=== PATIENT | male | born 1950 | race Caucasian/White ===

== ENCOUNTER 2020-07-03 06:28 | Day surgery (SDC) | payer OTHER, SELFPAY ==
[2020-06-28 19:40] VITALS: BMI 37.0
--- NOTE | 2020-06-30 08:32 | MHC.SHP ---
Pre-Procedural Eval Section A The patient is an INPATIENT: No The History & Physical has been completed within 30 days and I have reviewed it.: Yes Section B Chief Complaint: Cataract Left Eye,Ocular Hypertension Allergies: Allergies Allergy/AdvReac Type Severity Reaction Status Date / Time No Known Allergies Allergy Unverified 06/30/20 08:28 Plan Diagnosis/Plan: Unchanged Patient has been examined and remains a candidate for the planned procedure
--- NOTE | 2020-06-30 11:46 | HO.ANESPROP2 ---
Documented by User: Tierra Little 06/30/20 15:06 HPI - Anesthesia Eval Consult details Narrative: 69yo M for L cataract , trabeculectomy PCP cleared prednisone daily for rheum PMFSH Past Medical History Medical History Diabetes Edema History of gastric ulcer Hypertension Immunocompromised Pleural effusion Surgical History Surgical History H/O endoscopy Social History Social History Smoking Status: Never smoker Second Hand Smoke Exposure: No Use of substances other than those prescribed or required for medical reasons: No Advance Directives: Yes (unknown) Advance Directives on File: Yes Advance Directives Date on File: 07/03/20 Meds Allergies Allergy/AdvReac Type Severity Reaction Status Date / Time No Known Allergies Allergy Unverified 06/30/20 08:28 Home Medications Medication Instructions Recorded Confirmed Type azathioprine 3 tab PO DAILY 06/28/20 06/28/20 History diltiazem HCl 1 cap PO DAILY 06/28/20 History insulin glargine [Lantus Solostar 15 unit SUBCUT DAILY 06/28/20 06/28/20 History U-100 Insulin] metoprolol succinate 1 tab PO DAILY 06/28/20 06/28/20 History prednisone PO DAILY 06/28/20 History rivaroxaban [Xarelto] 1 tab PO BEDTIME 06/28/20 06/28/20 History torsemide 2 tab PO DAILY 06/28/20 06/28/20 History Exam Exam Date and Time: June 30, 2020 1146 Height,Weight and Vital Signs: Height 6 ft Weight 123.831 kg Documented by User: Martinez Day 07/03/20 08:50 PMFSH Past Medical History Medical History Diabetes Edema History of gastric ulcer Hypertension Immunocompromised Pleural effusion Surgical History Surgical History H/O endoscopy Social History Social History Smoking Status: Never smoker Second Hand Smoke Exposure: No Use of substances other than those prescribed or required for medical reasons: No Advance Directives: Yes (unknown) Advance Directives on File: Yes Advance Directives Date on File: 07/03/20 Meds Allergies Allergy/AdvReac Type Severity Reaction Status Date / Time No Known Allergies Allergy Unverified 06/30/20 08:28 Home Medications Medication Instructions Recorded Confirmed Type azathioprine 3 tab PO DAILY 06/28/20 06/28/20 History diltiazem HCl 1 cap PO DAILY 06/28/20 History insulin glargine [Lantus Solostar 15 unit SUBCUT DAILY 06/28/20 06/28/20 History U-100 Insulin] metoprolol succinate 1 tab PO DAILY 06/28/20 06/28/20 History prednisone PO DAILY 06/28/20 History rivaroxaban [Xarelto] 1 tab PO BEDTIME 06/28/20 06/28/20 History torsemide 2 tab PO DAILY 06/28/20 06/28/20 History Exam Airway Mallampati Class: III TM Dist: >3cm Neck ROM: Full Loose/Missing/Broken Teeth: No Heart: [id number]+[id number] Lungs: cta b/l Assessment and Plan Assessment Anesthesia Assessment: Anesthesia Plan Discussed, PAT Visit and Chart Reviewed Final Anesthetic Review NPO: Yes ASA Class: III Final Preanesthetic Review: No Changes in Pt Med Stat, Meds/Allgs Chart Reviewed, Consent Obtained/Reviewed and Anes Risks/Benef Reviewed Patient Risk: Low Procedure Risk: Low Assessment/Block/Sedation in SS: Assess/Block/Sedation-SS Anesthetic Plan Anesthetic Plan: MAC: Disposition: Standard PACU
[2020-07-03] MEDS: Tetracaine HCl/PF 0.5% Oph Sol 4 ML DROPS 1 DROP EYE-LEFT (07:02)
[2020-07-03] MEDS: Cyclopentolate 1 % Ophth Sol 2 ML DRPBTL 1 DROP EYE-LEFT ×3 (07:03→07:14)
[2020-07-03] MEDS: Tropicamide 1 % Ophth Sol 3 ML BTL 1 DROP EYE-LEFT ×3 (07:04→07:15)
[2020-07-03 07:06] VITALS: BP 131/77; PULSE 65; RESP 16; TEMP 36.9; O2SAT 96
--- NOTE | 2020-07-03 09:00 | P.CONAN_ITS ---
[facility] Past Medical History Medical History Diabetes Edema History of gastric ulcer Hypertension Immunocompromised Pleural effusion Surgical History Surgical History H/O endoscopy Social History Social History Smoking Status: Never smoker Second Hand Smoke Exposure: No Use of substances other than those prescribed or required for medical reasons: No Advance Directives: Yes (unknown) Advance Directives on File: Yes Advance Directives Date on File: 07/03/20 Meds Allergies Allergy/AdvReac Type Severity Reaction Status Date / Time No Known Allergies Allergy Unverified 06/30/20 08:28 Home Medications Medication Instructions Recorded Confirmed Type azathioprine 3 tab PO DAILY 06/28/20 06/28/20 History diltiazem HCl 1 cap PO DAILY 06/28/20 History insulin glargine [Lantus Solostar 15 unit SUBCUT DAILY 06/28/20 06/28/20 History U-100 Insulin] metoprolol succinate 1 tab PO DAILY 06/28/20 06/28/20 History prednisone PO DAILY 06/28/20 History rivaroxaban [Xarelto] 1 tab PO BEDTIME 06/28/20 06/28/20 History torsemide 2 tab PO DAILY 06/28/20 06/28/20 History Exam Exam Date and Time: July 03, 2020 0900 Height,Weight and Vital Signs: Height 6 ft Weight 123.831 kg Last Vital Signs Temp 98.4 F 07/03/20 07:06 Pulse 65 07/03/20 07:06 Resp 16 07/03/20 07:06 BP 131/77 07/03/20 07:06 Pulse Ox 96 07/03/20 07:06 Airway Mallampati Class: III TM Dist: >3cm Neck ROM: Full Partial: Upper (Perm bridge) Heart: Rrr Lungs: CTA BL Assessment and Plan Assessment Anesthesia Assessment: Anesthesia Plan Discussed and Chart Reviewed Final Anesthetic Review Final Preanesthetic Review: Anes Risks/Benef Reviewed Patient Risk: Intermediate Procedure Risk: Intermediate Anesthetic Plan Anesthetic Plan: MAC: Disposition: Standard PACU
--- NOTE | 2020-07-03 09:41 | P.PCN_ITS ---
Ophthalmology Procedure Procedure Ophthalmology Viscoelastic: Healyumiko Carrt Dual Pack Pro Ophthalmology Lenses: TECHARJEET [id number] (23) Procedure Notes: PREOPERATIVE DIAGNOSIS: Decreased visual acuity left eye secondary to cataract and glaucoma POSTOPERATIVE DIAGNOSIS: Same PROCEDURE: Left cataract extraction with intraocular lens insertion and trabeculectomy, left eye SURGEON: Anatoly Barron M.D. ANESTHESIA: Topical/MAC ESTIMATED BLOOD LOSS: None COMPLICATIONS: None After obtaining informed consent, the patient was brought to the operating room suite and placed in the supine position. After adequate sedation per anesthesia, topical drops of Tetracaine were given to the left eye. The eye was then prepped and draped in the usual sterile fashion. The operating room microscope was then positioned over the left eye and a lid speculum placed. 2% Lidocaine was instilled subconjunctivally. After awaiting 30 seconds, a paracentesis was created superiorly. Hemostasis was then achieved using wet field cautery. Mitomycin .4mg/ml was then placed in the conjunctival pocket and held in place for two minutes. The subconjunctival pocket was then irrigated copiously with 20 mls of BSS. Paracentesis was then created. Viscoelastic was then instilled into the anterior chamber. A crescent blade was then utilized to create a partial thickness sclera wound followed by advancement to clear cornea with the crescent blade. A keratome was then utilized to enter the anterior chamber. Capsulotomy forceps were then utilized to create a continuous circular tear capsulotomy. Hydrodissection and hydrodelineation were carried out until adequate mobilization of the nucleus occurred. Phacoemulsification was utilized to remove the dense central nucleus followed by removal of remnant cortical material utilizing the automated aspiration irrigation unit. Viscoelastic was then instilled into the posterior capsular bag followed by placement of a posterior chamber intraocular lens. Attention was then directed to create a trabeculectomy. A Yaz punch was then utilized to create the trabeculectomy. The residual Viscoelastic was then removed utilizing the automated IA machine. The egress of aqueous was evaluated and found to be appropriate. The conjunctiva was then closed with a 9-0 vicryl suture. BSS wa s then instilled into the anterior chamber creating a superior bleb, without obvious leakage. Intracameral injection of Vigamox 0.3%, 0.1 ml and subtenon injection of Kenalog-40 0.2 ml was given followed by an atropine drop. The patient tolerated the procedure well and will be followed up in the a.m.
[2020-07-03 09:42] VITALS: BP 130/93; PULSE 83; RESP 16; TEMP 36.2; O2SAT 97
[2020-07-03 09:50] VITALS: BP 138/85; PULSE 81; RESP 16; TEMP 36.2; O2SAT 96
--- NOTE | 2020-07-03 15:51 | W.PM.OPN ---
Operative Note Operative Note Narrative: The patient had an ophthalmology?procedure on 07/03/20.? The procedure note was entered into the wrong report. Please see ECT progress note 07/03/20 note under neurology section entitled for full ophthalmology procedure note.? The information contained within that report is otherwise complete and accurate.? ?The patient did not have an ECT on this date.?
--- NOTE | 2020-07-07 15:32 | P.PCNOPHT_ITS ---
Ophthalmology Procedure Procedure Procedure Notes: The patient had an ophthalmology?procedure on 07/03/20.? The pr ocedure note was entered into the wrong report. Please see ECT progress note 07/03/20 note under neurology section entitled for full ophthalmology procedure note.? The information contained within that report is otherwise complete and accurate.? ?The patient did not have an ECT on this date.?
== END 2020-07-03 10:04 | disposition home or self-care (01) ==
PROVIDERS: Ophthalmology; PCP Family Medicine; Visit Provider Anesthesiology
PROC: (CPT 66984; principal; 2020-07-03 08:30)
DX: H25.12 Age-related nuclear cataract, left eye (principal); H40.1121 Primary open-angle glaucoma, left eye, mild stage; H40.052 Ocular hypertension, left eye; Z96.1 Presence of intraocular lens; I10 Essential (primary) hypertension; E11.9 Type 2 diabetes mellitus without complications; Z79.4 Long term (current) use of insulin; Z79.899 Other long term (current) drug therapy; Z87.891 Personal history of nicotine dependence
CPT/HCPCS: 66984; 66170; J2250; J3010; J3300; J7315; Q4081; V2632